=== PATIENT | male | born 1980 | race Caucasian/White ===

== ENCOUNTER 2021-12-26 00:02 | Emergency (ER) | payer SELFPAY ==
[~2021-12-26] VITALS: Ht 188 cm; Wt 77.0 kg
[2021-12-26 00:16] VITALS: BP 116/68
--- NOTE | 2021-12-26 00:18 | PHYS DOC ---
Past History Past Medical History: No Pertinent History Past Surgical History: No Surgical History Alcohol Use: Occasionally Drug Use: None General Adult HPI: HPI: "My feet stink.. they are wet and they itch..." Patient is a 41 year old male who presents with above hx of wet, malodorous,itchy feet that are itchy. Patient does have some findings of chilblains. Patient is wearing wet dirty socks. Pt. admits to Meth use yesterday and may be a "little " tonight. Patient has no other complaints other than he is a little" twitchy" from methamphetamine use earlier. No recent travel. No significant ill contacts. No history immunosuppression. History of polysubstance abuse. Patient reports his main drug use is marijuana and methamphetamine. Patient does smoke. Review of Systems: Review of Systems: Constitutional: Denies fever or chills Eyes: Denies change in visual acuity HENT: Denies nasal congestion or sore throat Respiratory: Denies cough or shortness of breath Cardiovascular: Denies chest pain or edema GI: Denies abdominal pain, nausea, vomiting, bloody stools or diarrhea : Denies dysuria Musculoskeletal: Denies back pain or joint pain Integument: Complains of wet malodorous itchy feet Neurologic: Denies headache, focal weakness or sensory changes Endocrine: Denies polyuria or polydipsia Lymphatic: Denies swollen glands Psychiatric: Denies depression or anxiety Family History: Family History: Noncontributory to presentation Current Medications: Current Meds: See nursing for home meds Allergies: Allergies: No known drug allergies Physical Exam: PE: Constitutional: , no acute distress, non-toxic appearance. [] HENT: Normocephalic, atraumatic, bilateral external ears normal, oropharynx moist, no oral exudates, nose normal. Poor dentition Eyes: PERRLA, EOMI, conjunctiva normal, no discharge. [] Neck: Normal range of motion, no tenderness, supple, no stridor. [] Cardiovascular:Heart rate regular rhythm, no murmur [] Lungs & Thorax: Bilateral breath sounds to apex with scattered wheezes on auscultation [] Abdomen: Bowel sounds normal, soft, no tenderness, no masses, no pulsatile masses. [] Skin: Warm, dry, no erythema, no rash. Tattoos. Old needle murray. Back: No tenderness, no CVA tenderness. [] Extremities: No tenderness, no cyanosis, no clubbing, ROM intact, no edema. Malodorous feet and shoes Neurologic: Alert and oriented X 3, moves all extremities on request, does have distal sensory,, no focal deficits noted. Twitchy jerking movements. Psychologic: Affect normal, judgement normal, mood normal. [] EKG: EKG: [] Radiology/Procedures: Radiology/Procedures: [] Heart Score: C/O Chest Pain: N/A Risk Factors: Risk Factors: DM, Current or recent (<one month) smoker, HTN, HLP, family history of CAD, obesity. Risk Scores: Score 0 - 3: 2.5% MACE over next 6 weeks - Discharge Home Score 4 - 6: 20.3% MACE over next 6 weeks - Admit for Clinical Observation Score 7 - 10: 72.7% MACE over next 6 weeks - Early Invasive Strategies Course & Med Decision Making: Course & Med Decision Making Pertinent Labs and Imaging studies reviewed. (See chart for details) Patient wear dry socks. Patient issued a pair of hospital socks. Patient encouraged to wash use feet daily. Wear dry socks. Follow-up primary care. Encourage patient to avoid using methamphetamine and tobacco. Impression: 1. Malodorous feet Dragon Disclaimer: Dragon Disclaimer: This electronic medical record was generated, in whole or in part, using a voice recognition dictation system. Departure Departure: Referrals: PCP,NO (PCP) Dragon Disclaimer This chart was dictated in whole or in part using Voice Recognition software in a busy, high-work load, and often noisy Emergency Department environment. It may contain unintended and wholly unrecognized errors or omissions. Dragon Disclaimer This chart was dictated in whole or in part using Voice Recognition software in a busy, high-work load, and often noisy Emergency Department environment. It may contain unintended and wholly unrecognized errors or omissions. Dragon Disclaimer This chart was dictated in whole or in part using Voice Recognition software in a busy, high-work load, and often noisy Emergency Department environment. It may contain unintended and wholly unrecognized errors or omissions. JUAN PULIDO MD Dec 26, 2021 00:18
== END 2021-12-26 00:50 | disposition home or self-care (01) ==
LOC: ER 00:02
DX: L98.8 Other specified disorders of the skin and subcutaneous tissue (principal); L29.9 Pruritus, unspecified
CPT/HCPCS: 99283